=== PATIENT | female | born 1955 | race Caucasian/White ===

== ENCOUNTER 2019-03-03 20:34 | Emergency (ER) | payer OTHER, MEDICARE ==
[2019-03-03] MEDS ORDERED: LIDOCAINE 1% INJ-PF (10 MG/ML) 30 ML SDV INJ ONE (20:47)
--- NOTE | 2019-03-03 20:48 | ER Document Report ---
ED Medical Screen (RME) - General Chief Complaint: Hand Injury Stated Complaint: HAND LACERATION Time Seen by Provider: 03/03/19 20:43 Primary Care Provider: KATLYN LANG MD [Primary Care Provider] - Follow up as needed Mode of Arrival: Wheelchair Information source: Patient Notes: Patient was trying to cut and avocado and get the seat out and slipped cutting her left hand. Patient with laceration to the thenar eminence of the left hand. 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 Patient states tetanus immunization is currently up-to-date. I have greeted and performed a rapid initial assessment of this patient. A comprehensive ED assessment and evaluation of the patient, analysis of test results and completion of the medical decision making process will be conducted by additional ED providers. TRAVEL OUTSIDE OF THE [place] IN LAST 30 DAYS: No - Related Data Allergies/Adverse Reactions: pseudoephedrine [From Sudafed] Allergy (Verified 01/12/16 08:42) Past Medical History - Past Medical History Cardiac Medical History: Denies: Hx Coronary Artery Disease, Hx Heart Attack, Hx Hypertension Pulmonary Medical History: Denies: Hx Asthma, Hx Bronchitis, Hx COPD, Hx Pneumonia Neurological Medical History: Denies: Hx Cerebrovascular Accident, Hx Seizures Musculoskeltal Medical History: Denies Hx Arthritis Past Surgical History: Denies: Hx Hysterectomy, Hx Pacemaker - Immunizations Hx Diphtheria, Pertussis, Tetanus Vaccination: Yes Physical Exam - Vital signs Vitals: Temp Pulse Resp BP Pulse Ox 97.4 F 57 L 18 107/67 98 03/03/19 20:40 03/03/19 20:40 03/03/19 20:40 03/03/19 20:40 03/03/19 20:40 - Skin Skin irregularity: Laceration - 1 cm laceration to left thenar eminence Course - Vital Signs Vital signs: Temp Pulse Resp BP Pulse Ox 97.4 F 57 L 18 107/67 98 03/03/19 20:40 03/03/19 20:40 03/03/19 20:40 03/03/19 20:40 03/03/19 20:40 Doctor's Discharge - Discharge Referrals: KATLYN LANG MD [Primary Care Provider] - Follow up as needed
[2019-03-03] MEDS ORDERED: ACETAMINOPHEN 325 MG TABLET PO ONE (23:29)
--- NOTE | 2019-03-04 | ER Document Report ---
ED Wound - General Chief Complaint: Laceration Stated Complaint: HAND LACERATION Time Seen by Provider: 03/03/19 20:43 Primary Care Provider: KATLYN LANG MD [ACTIVE STAFF] - Follow up as needed Mode of Arrival: Wheelchair Notes: Patient is a 63-year-old female presents to the emergency department for a laceration noted to the left thenar eminence. Patient voices she was cutting and avocado. States she tried to cut the patient and her hand slipped. States she feels as though the entire knife went through her left thenar eminence. Patient does have a laceration noted to the anterior aspect of her thenar eminence but does not appear to go through to the posterior side. 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 Patient voices her tetanus is up-to-date. TRAVEL OUTSIDE OF THE [place] IN LAST 30 DAYS: No - Related Data Allergies/Adverse Reactions: pseudoephedrine [From Sudafed] Allergy (Verified 01/12/16 08:42) Past Medical History - General Information source: Patient - Social History Smoking Status: Never Smoker Family History: Reviewed & Not Pertinent Patient has suicidal ideation: No Patient has homicidal ideation: No - Past Medical History Cardiac Medical History: Denies: Hx Coronary Artery Disease, Hx Heart Attack, Hx Hypertension Pulmonary Medical History: Denies: Hx Asthma, Hx Bronchitis, Hx COPD, Hx Pneumonia Neurological Medical History: Denies: Hx Cerebrovascular Accident, Hx Seizures Musculoskeletal Medical History: Denies Hx Arthritis Past Surgical History: Denies: Hx Hysterectomy, Hx Pacemaker - Immunizations Hx Diphtheria, Pertussis, Tetanus Vaccination: Yes Review of Systems - Review of Systems Constitutional: denies: Fever EENT: No symptoms reported Cardiovascular: No symptoms reported Respiratory: No symptoms reported Gastrointestinal: No symptoms reported Genitourinary: No symptoms reported Female Genitourinary: No symptoms reported Musculoskeletal: See HPI Skin: See HPI Hematologic/Lymphatic: No symptoms reported Neurological/Psychological: No symptoms reported Physical Exam - Vital signs Vitals: Temp Pulse Resp BP Pulse Ox 97.4 F 57 L 18 107/67 98 03/03/19 20:40 03/03/19 20:40 03/03/19 20:40 03/03/19 20:40 03/03/19 20:40 - Notes Notes: GENERAL: Alert, interacts well. No acute distress. HEAD: Normocephalic, atraumatic. EYES: Pupils equal, round, and reactive to light. Extraocular movements intact. ENT: Oral mucosa moist, tongue midline. NECK: Full range of motion. Supple. Trachea midline. LUNGS: Clear to auscultation bilaterally, no wheezes, rales, or rhonchi. No respiratory distress. HEART: Regular rate and rhythm. No murmur ABDOMEN: Soft, non-tender. Non-distended. Bowel sounds present in all 4 quadrants. EXTREMITIES: Moves all 4 extremities spontaneously. No edema, normal radial and dorsalis pedis pulses bilaterally. No cyanosis. Patient has full range of motion all 5 fingers on the left hand. Patient can flex and extend against resistance. She can adduct and abduct all 5 left fingers against resistance. Full range of motion of the wrist. Patient voices slight "tingling feeling in her elbow. Full range of motion left elbow, left shoulder. BACK: no cervical, thoracic, lumbar midline tenderness. No saddle anesthesia, normal distal neurovascular exam. NEUROLOGICAL: Alert and oriented x3. Normal speech. 1 cm laceration noted left thenar eminence. Cranial nerves II through XII grossly intact PSYCH: Normal affect, normal mood. SKIN: Warm, dry, normal turgor. 1 cm laceration noted left thenar eminence. Course - Re-evaluation Re-evalutation: 03/03/19 23:57 Patient does appear to be able to move all 5 fingers on the left hand against resistance. Neurological exam appears intact. I discussed with patient close follow-up with Dr. Garcia and he has a hand specialist. Laceration repaired, see procedure note. Patient denies any pain other than directly over the laceration. Discussed potentially doing a x-ray of patient feels as though the velocity of which the knife entered her hand could have hit her bone. Patient voices "it went in so slow." She is refusing x-ray at this time. Patient stable for discharge. 03/03/19 23:58 Laceration is not easily pulled apart, does not appear deep upon my initial examination I have not probed the wound. - Vital Signs Vital signs: Temp Pulse Resp BP Pulse Ox 97.4 F 57 L 18 107/67 98 10/28/19 20:40 03/03/19 20:40 03/03/19 20:40 03/03/19 20:40 03/03/19 20:40 Procedures - Laceration/Wound Repair Left thenar eminence Wound length (cm): 1 Wound's Depth, Shape: Superficial, Linear Laceration pre-procedure: Sterile PPE donned, Betadine prep applied, Sterile drapes applied, Shur-Clens applied Anesthetic type: 1% Lidocaine Volume Anesthetic (mLs): 5 Wound explored: Clean Irrigated w/ Saline (mLs): 500 Wound Debrided: Minimal Wound Repaired With: Sutures Suture Size/Type: 4:0, Ethilon Number of Sutures: 2 Post-procedure wound care: Sterile dressing applied Post-procedure NV exam normal: Yes Complications: No Discharge - Discharge Clinical Impression: Hand laceration Qualifiers: Encounter type: initial encounter Foreign body presence: without foreign body Laterality: left Qualified Code(s): S61.412A - Laceration without foreign body of left hand, initial encounter Condition: Stable Disposition: HOME, SELF-CARE Instructions: Laceration Care ([facility]), Soap Cleansing ([facility]), Antibiotic Ointment Protection ([facility]) Additional Instructions: As we discussed you have been seen and treated in the emergency department for a laceration to the left palm. Please keep the sutures clean and dry for the next 24 hours. After that you can wash it like normal but do not submerge the wound. I have provided you phone numbers for Dr. Garcia. He is to orthopedic hand specialist. Please follow-up with him tomorrow. Please return to the emergency room should you see any signs of infection noted in your left hand, redness, swelling, discharge from the site. Please also return to the emergency room for any other concerns. Forms: Return to Work Referrals: KATLYN LANG MD [ACTIVE STAFF] - Follow up as needed CURTIS GARCIA DO [ACTIVE STAFF] - Follow up as needed
[2019-03-04 00:16] VITALS: BP 115/74
== END 2019-03-04 00:15 | disposition home or self-care (01) ==
LOC: ER 20:34
DX: S61.412A Laceration without foreign body of left hand, initial encounter (principal); W26.0XXA Contact with knife, initial encounter; Y93.G9 Activity, other involving cooking and grilling; Z88.8 Allergy status to other drugs, medicaments and biological substances; R20.2 Paresthesia of skin
CPT/HCPCS: 99282; 12001; J3490